=== PATIENT | male | born 1985 ===

== ENCOUNTER 2018-05-10 15:00 | Emergency (ER) | payer MEDICAID, OTHER ==
[2018-05-10 15:21] VITALS: BMI 68.1
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
--- NOTE | 2018-05-10 17:06 | RAD ---
PROCEDURE: Left Hand Radiographs. HISTORY: injury, focus 2nd metacarpal COMPARISON: None. FINDINGS: BONES: Bone alignment and mineralization are normal. There is no acute displaced fracture or bone destruction. JOINTS: Normal. No osteoarthritic changes. SOFT TISSUES: Normal. OTHER FINDINGS: None. IMPRESSION: No acute fracture or dislocation.
[2018-05-10 18:36] VITALS: BP 103/69; PULSE 90; RESP 14; TEMP 98.3; O2SAT 99
== END 2018-05-10 18:34 | disposition home or self-care (01) ==
LOC: ED 15:00 → MERGE 15:00 → ED 18:34
DX: S60.222A Contusion of left hand, initial encounter (principal); X58.XXXA Exposure to other specified factors, initial encounter; Y92.89 Other specified places as the place of occurrence of the external cause; F11.20 Opioid dependence, uncomplicated; Z65.3 Problems related to other legal circumstances